=== PATIENT | female | born 1955 | race African-American/Black ===

== ENCOUNTER 2017-04-11 14:14 | Outpatient (CLI) | payer BC ==
[2016-04-09 22:36] VITALS: BP 158/75
[2017-04-11 15:22] LABS: eGFR (African) > 60; eGFR (Non-African) > 60
== END 2017-04-11 14:15 ==
LOC: LAB 14:14
PROVIDERS: ATTEND Family Medicine
DX: I10 Essential (primary) hypertension (principal); R73.03 Prediabetes
CPT/HCPCS: 36415; 80048; 83036

== ENCOUNTER 2017-05-23 07:46 | Day surgery (SDC) | payer BC ==
[2016-04-09 22:36] VITALS: BP 158/75
[2017-05-23] MEDS ORDERED: LIDOCAINE HCL/PF 2% 100 MG/5 ML VIAL IJ ONE (08:00)
[2017-05-23] MEDS ORDERED: PROPOFOL 500 MG/50 ML VIAL IV ONE (08:00)
[2017-05-23] MEDS ORDERED: SALINE FLUSH 10 ML DISP.SYRIN IVF ONE (08:00)
[2017-05-23] MEDS ORDERED: LACTATED RINGERS 1,000 ML IV.SOLN IV ONE (08:00)
--- NOTE | 2017-05-23 11:44 | GI Report ---
REFERRING PHYSICIAN: Dr. Delilah Stoll INSTRUMENTATION SPECIALIST: Maximus Mejia MD PROCEDURE MEDICATION: Propofol as per anesthesia. INDICATIONS: A 61-year-old woman who has had change in bowel habits with blood in her stool. She occasionally has some cramps. She denies change in caliber of stool. She is referred for the above indications. PROCEDURE PERFORMED: Colonoscopy. DESCRIPTION OF PROCEDURE: On rectal exam, the patient does have some external hemorrhoids. The Olympus video colonoscope was advanced into the rectum and slowly advanced to the cecum. She does have kind of a redundant sigmoid colon. It took some maneuvering to slowly advance all the way to the base of the cecum. The appendiceal orifice and ileocecal valve were normal. On slow withdrawal, the cecum, ascending colon, and transverse colon had no obvious intraluminal lesions noted. The descending colon and sigmoid colon, again, redundancy, no obvious intraluminal lesions noted. Retroflexion of the rectum showed some internal hemorrhoids. There was a lot of friability right in the anal canal. IMPRESSION: 1. Hemorrhoids and bleeding appears to be from the anal canal. 2. An atonic redundant colon. RECOMMENDATIONS: 1. Would increase fiber in diet such as a fiber supplement daily. 2. Increase fiber in the diet. 3. Follow up with Dr. Stoll. 4. Consider re-looking at her colon within 10 years, sooner if clinically indicated. cc: Dr. Delilah DANG
== END 2017-05-23 07:47 ==
LOC: OPSURG 07:46
PROVIDERS: ATTEND Internal Medicine Gastroenterology
DX: K64.9 Unspecified hemorrhoids (principal); K92.1 Melena
CPT/HCPCS: 45378; J2001; J2704; J7120; S1016

== ENCOUNTER 2018-04-16 06:14 | Emergency (ER) | payer BC ==
--- NOTE | 2018-04-16 06:40 | ED Physician Documentation ---
General Adult - HISTORIAN Historian: patient - HPI Stated Complaint: laceration to left thumb Chief Complaint: Laceration/Recheck/Suture Onset: days ago (3) Timing: still present, pain intermittent Severity: mild Further Comments: no - ROS CONST: denies: fever EYES/ENT: none CVS/RESP: denies: chest pain, shortness of breath GI/: none MS/SKIN/LYMPH: none NEURO/PSYCH: denies: headache - PAST HX Past History: other (breast cancer) Other History: none Surgeries/Procedures: none Allergies/Adverse Reactions: Allergies Allergy/AdvReac Type Severity Reaction Status Date / Time No Known Drug Allergies Allergy Unverified 10/06/12 15:20 Home Medications: Ambulatory Orders Medication Instructions Recorded Losartan Potassium 25 mg PO D 04/09/16 Cephalexin [Keflex] 500 mg PO BID #10 capsule 04/16/18 - SOCIAL HX Smoking History: non-smoker Alcohol Use: none Drug Use: none - FAMILY HX Family History: No - VITAL SIGNS Vital Signs: Vital Signs Temp Pulse Resp BP Pulse Ox 158/75 04/09/16 22:01 - REVIEWED ASSESSMENTS Nursing Assessment Reviewed: Yes Vitals Reviewed: Yes General Adult Physical Exam - PHYSICAL EXAM GENERAL APPEARANCE: no distress EENT: ROSIE NECK: supple RESPIRATORY: no resp distress, breath sounds normal CVS: reg rate & rhythm, heart sounds normal ABDOMEN: soft BACK: no CVA tenderness SKIN: warm/dry, other (1 cm half tsang laceration on left thumb at DIP joint) EXTREMITIES: normal range of motion NEURO: oriented X3 Discharge Clincal Impression: Laceration Prescriptions: Cephalexin [Keflex] 500 mg PO BID #10 capsule Referrals: Verna Morales MD [Primary Care Provider] - 2 Days Additional Instructions: Keep wound clean and dry. Wash twice daily with warm soapy water. Condition: Stable Disposition: HOME, SELF-CARE Decision to Admit: NO (t) Date of Decison to Admit: 04/16/18 Decision Time: 06:45
[2018-04-16 07:35] VITALS: BP 150/65
== END 2018-04-16 06:55 | disposition home or self-care (01) ==
LOC: ED 06:14
DX: S61.012D Laceration without foreign body of left thumb without damage to nail, subsequent encounter (principal); X58.XXXA Exposure to other specified factors, initial encounter; Y92.9 Unspecified place or not applicable; Y93.9 Activity, unspecified; Y99.9 Unspecified external cause status

== ENCOUNTER 2018-09-11 07:54 | Outpatient (CLI) | payer BC | END 2018-09-11 07:55 | LOC: OUT 07:54 | PROVIDERS: ATTEND Family Medicine | DX: E11.9 Type 2 diabetes mellitus without complications (principal) | CPT/HCPCS: 97802 ==